=== PATIENT | female | born 1955 | race Caucasian/White ===

== ENCOUNTER 2024-06-28 12:08 | Emergency (ER) | payer MEDICARE, OTHER, SELFPAY ==
[2024-06-28 12:14] VITALS: BP 179/110
[2024-06-28 12:30] LABS: Urine Albumin Negative (Neg - Trace); Urine Bilirubin Negative (Negative); Urine Character Clear (Clear); Urine Color Yellow; Urine Glucose Negative (Negative); Urine Ketone Negative (Negative); Urine Leukocyte Negative (Negative); Urine Nitrite Negative (Negative); Urine Occult Blood Negative (Negative); Urine Specific Gravity 1.005 (<1.030); Urine Urobilinogen Negative (Neg - 1+)
[2024-06-28 12:38] LABS: % Basophils 0.8 % (0-2); % Immature Granulocytes 0.2 % (0-0.5); % Lymphocytes 23.4 % (20.5-51.1); % Monocytes 9.8 % (1.7-9.3); % Neutrophils 58.8 % (42.2-75.2); Absolute Basophils 0.1 10^3/uL (0-0.2); Absolute Eosinophils 0.4 10^3/uL (0-0.7); Absolute Lymphocytes 1.4 10^3/uL (1.2-3.4); Absolute Monocytes 0.6 10^3/uL (0.1-0.6); Absolute Neutrophils 3.6 10^3/uL (1.4-6.5); Hematocrit 40.2 % (37.0-47.0); Hemoglobin 14.8 g/dL (12.0-16.0); Mean Corp Hgb Conc. 36.8 g/dL (33.0-37.0); Mean Corpuscular Hgb 32.8 pg (27.0-31.0); Mean Corpuscular Volume 89.1 fL (81.0-99.0); Mean Platelet Volume 9.7 fL (7.4-10.4); Nucleated Red Blood Cells % 0 %; Platelet Count 354 10^3/uL (130-400); Red Blood Cell Count 4.51 10^6/uL (4.20-5.40); Red Cell Dist. Width 12.2 % (11.5-14.5); White Blood Cell Count 6.1 10^3/uL (4.8-10.8)
[2024-06-28 12:41] LABS: ALT (SGPT) 19 U/L (0-35); AST (SGOT) 36 U/L (14-36); Albumin 4.9 g/dl (3.5-5.0); Alkaline Phosphatase 50 U/L (38-126); Blood Urea Nitrogen 16 mg/dl (7-17); Calcium 10.2 mg/dl (8.4-10.2); Carbon Dioxide 26 mmol/L (22-30); Chloride 102 mmol/L (98-107); Glucose 106 mg/dl (70-99); Lipase 61 U/L (23-300); Potassium 3.9 mmol/L (3.5-5.1); Sodium 135 mmol/L (135-145); Total Bilirubin 0.8 mg/dl (0.2-1.3); Total Protein 7.6 g/dl (6.3-8.2); eGFR > 60.00
[2024-06-28 14:04] VITALS: BP 172/90
[2024-06-28] MEDS: ZOFRAN ODT (ORALLY DISINTEGRATING) 4 MG PO (14:34)
[2024-06-28] MEDS: DECADRON 10 MG PO (14:38)
--- NOTE | 2024-06-28 14:45 | ED.GENMED ---
History of Present Illness
General
Chief Complaint: Abdominal Symptoms
Source: patient
Exam Limitations: none
Time Seen by Provider: 06/28/24 13:16
Nursing documentation reviewed up to this point in time: agreed with
History of Present Illness
History of Present Illness:
69-year-old female with past medical history of IBS hypertension and anxiety presenting to the emergency department today with concerns of ongoing nausea over the past month. Has had nasal congestion and has been treated for sinus infection with
ciprofloxacin over the past 2 weeks. She additionally has been using Flonase for the postnasal drip but claims this has been ongoing. Denies any severe abdominal pain has had some intermittent upper abdominal crampy discomfort but no sharp
discomfort. No vomiting no changes in bowel movements. No chest pain or shortness of breath. No fevers.
Review of Systems
Review of Systems
Allergies reviewed?: Yes
All Other Systems: ROS reviewed and negative except as documented in HPI and ROS
Phy Exam
Physical Exam
Physical Exam:
GENERAL: Alert , in no apparent distress
EYE: pupils equal and reactive
NECK: Supple, no significant adenopathy.
ENT: post nasal drip o/p clr, mmm.
CARDIAC: Regular rate and rhythm .
LUNGS: Clear breath sounds bilaterally, no acute respiratory distress, no wheezes/rales/rhonchi
ABDOMEN: Soft, without focal tenderness, no r/g, no cvat
NEUROLOGICAL: Alert and oriented, no focal neuro deficits
SKIN: Warm and dry, skin intact.
MUSCULOSKELETAL: No edema, well perfused.
PSYCH: Normal and appropriate interaction.
Course
Orders/Labs/Results
Orders:
Orders
06/28/24 12:22
Complete Blood Count/With Diff Urgent
Comprehensive Metabolic Panel Urgent
Lipase Urgent
Urinalysis Reflex To Culture Urgent
Date Specimen was Collected: 06/28/24
Time Specimen was Collected: 12:17
06/28/24 13:50
Dexamethasone [Decadron] 10 mg PO NOW STA
Ondansetron Orally Disint [Zofran Odt (Orally Disintegrating)] 4 mg PO NOW STA
06/28/24 13:53
EKG [Electrocardiogram (*1)] Urgent
Reason for Study: Chest Pain
06/28/24 13:54
EKG- Treatment ONCE
Abnormal Lab Results
06/28/24
12:22
MCH 32.8 H pg
(27.0-31.0)
Monocytes % 9.8 H %
(1.7-9.3)
Eosinophils % 7.0 H %
(0-6)
Glucose 106 H mg/dl
(70-99)
06/28/24 12:22
06/28/24 12:22
Vital Signs
Initial and Last Documented VS:
Initial Vital Signs
Temp Pulse Resp BP Pulse Ox
98.0 F 79 18 179/110 97
06/28/24 12:14 06/28/24 12:14 06/28/24 12:14 06/28/24 12:14 06/28/24 12:14
Last Documented Vital Signs
Temp Pulse Resp BP Pulse Ox
98.0 F 70 16 172/90 99
06/28/24 12:14 06/28/24 14:04 06/28/24 14:04 06/28/24 14:04 06/28/24 14:04
MDM/Problems Addressed
MDM/Problems Addressed:
69-year-old female presenting to the emergency department today with concerns of ongoing nausea over the past month. Here blood pressure elevated otherwise vital signs are normal. Patient no distress. No abdominal tenderness normal heart lung
exam normal EKG labs unremarkable. Patient does have postnasal drip on exam which could be contributing to ongoing nausea. Considering this patient was given a steroid to help with inflammation of the sinuses as well as given Zofran for nausea.
Patient reassessed with improving symptoms. Stable for outpatient follow-up with ENT primary care and GI. Return precautions given.
*Critical Care Note
Total Time (30-74mins, 75-104mins- exclusive of procedures): Not Applicable
ED Attending Note
-
Portions of this chart may have been created with voice recognition software.� Occasional wrong word or��sound alike� substitutions may have occurred due to the inherent limitations of voice recognition software.
Discharge Plan
Departure
Patient Disposition: Home (Routine Discharge)
Date of Disposition: 06/28/24
Time of Disposition: 15:48
Patient with high blood pressure during this ER visit?: Yes
Condition: Good
Covid-19: Not Applicable
Discharge Problem:
Congestion of nasal sinus, Nausea
Instructions: Nausea and Vomiting, Adult (DC), BLOOD PRESSURE
Prescriptions:
New
ondansetron 4 mg tablet,disintegrating
4 mg PO Q8H PRN (Reason: nausea and vomiting) Qty: 7 0RF
prednisone 20 mg tablet
40 mg PO DAILY 3 Days Qty: 6 0RF
Rx Instructions:
Please start taking on Wednesday and take 40 mg daily for 3 days.
Referrals:
Yumiko Barajas MD [Family Provider] -
Activity Restrictions/Additional Instructions:
You came to the emergency department today with concerns of ongoing nausea and congestion. Please take the steroid to help with nasal congestion and the nausea medication to help with nausea. Please follow closely with the ENT GI and her primary
care doctor in the few weeks for further treatment and reassessment. Please also keep an eye on your blood pressure as it was somewhat elevated here.
Interventions
Interventions:
*Risk Screen - Suicide Last Done: 06/28/24 12:14
*General Assessment Last Done: 06/28/24 12:14
*Neglect/Abuse Screening Last Done: 06/28/24 12:14
*ED COVID-19 Vaccine History Last Done: 06/28/24 12:14
IJ-Syrib[facility]-Iigprnpefm Assessment Last Done: 06/28/24 14:04
Discharge Date and Time
Print Language: ARABIC
[2024-06-28 15:51] VITALS: BP 166/93
[2024-06-28 15:52] VITALS: BP 166/93
== END 2024-06-28 15:58 | disposition home or self-care (01) ==
LOC: EMR 12:08
PROVIDERS: Emergency Medicine; EMERGENCY PHYSICIAN Emergency Medicine; FAMILY PHYSICIAN Family Medicine
DX: R09.81 Nasal congestion (principal); I10 Essential (primary) hypertension; K58.9 Irritable bowel syndrome, unspecified; F41.9 Anxiety disorder, unspecified
CPT/HCPCS: 99283; 80053; 81003; 83690; 85025; 93005

== ENCOUNTER 2024-08-24 06:23 | Day surgery (SDC) | payer MEDICARE, OTHER, SELFPAY ==
[2024-08-24] VITALS (13 sets, daily range): BP systolic 133–170; BP diastolic 77–107; BMI 27.7
[2024-08-24] MEDS: ZOFRAN 4 MG IV (10:16)
[2024-08-24] MEDS: DILAUDID 0.25 MG IV (10:45)
--- NOTE | 2024-08-24 10:49 | SUR.PHASEI ---
patient had requested no narcotics prior to surgery, in pacu c/o 'slight nausea'- repeated zofran. Then states headache and heartburn. attempt postion for comfort and warm blankets for comfort - then states she could take a small dose of dilaudid.
Dilaudid 0.25mg given IV for headache - tolerated well. vss, Feels better.
[2024-08-24] MEDS: APRESOLINE 5 MG IV (11:15)
== END 2024-08-24 12:35 | disposition home or self-care (01) ==
LOC: SDS 06:23
PROVIDERS: ATTENDING PHYSICIAN Otolaryngology
DX: J32.9 Chronic sinusitis, unspecified (principal)
CPT/HCPCS: 31254; 31267; 88304; 88311